=== PATIENT | female | born 1990 | race Caucasian/White ===

== ENCOUNTER 2022-11-13 12:30 | Emergency (ER) | payer MEDICAID ==
[~2022-11-13] VITALS: Ht 154.9 cm; Wt 73.1 kg
[2022-11-13 13:40] LABS: Urine Bacteria FEW /hpf (None Seen); Urine Blood 1+ /uL (Negative); Urine Mucus FEW (None Seen); Urine Specific Gravity 1.013 (1.001-1.035); Urine WBC 1 /hpf (0 - 5)
[2022-11-13 13:53] LABS: Basophils # (auto) 0 10 ^3/uL (0-0.2); Basophils % (auto) 0.4 % (0.0-2.0); Eosinophils # (auto) 0.1 10 ^3/uL (0-0.8); Eosinophils % (auto) 0.9 % (0.0-7.0); Hematocrit 38.5 % (36.0-46.0); Hemoglobin 13.5 g/dL (12.2-16.2); Lymphocytes # (auto) 1.5 10 ^3/uL (0.4-5.4); Mean Corpuscular Hemoglobin 30.4 pg (28.0-32.0); Mean Corpuscular Hgb Conc. 35.1 g/dL (32.0-36.0); Mean Corpuscular Volume 86.7 fL (80.0-100.0); Monocytes # (auto) 0.3 10 ^3/uL (0-1.3); Monocytes % (auto) 4.8 % (0.0-12.0); Neutrophils # (auto) 4.5 10 ^3/uL (1.6-8.6); Neutrophils % (auto) 69.9 % (37.0-80.0); Nucleated Red Blood Cells % 0.1 %; Red Blood Cells 4.45 10^6/uL (4.0-5.20); Red Cell Distribution Width 12.6 % (11.8-14.3); White Blood Cell 6.4 10^3/uL (4.4-10.8)
[2022-11-13 14:07] LABS: BUN/Creatinine Ratio 15.3; Calcium 8.9 mg/dL (8.5-10.1); Potassium 3.7 mmol/L (3.5-5.1)
[2022-11-13 14:10] LABS: Bilirubin, Total 0.5 mg/dL (0.2-1.0); Total Protein 7.3 g/dL (6.4-8.2)
[2022-11-13] MEDS ORDERED: KETOROLAC TROMETH 60MG/2ML VIAL IM ONE (18:15)
[2022-11-13] MEDS ORDERED: cefTRIAXone W LIDOCAINE 1 GM IM IM ONE (18:15)
[2022-11-13] MEDS ORDERED: MORPHINE SULFATE 4 MG/ML SYR/VIAL IV ONE (18:15)
[2022-11-13] MEDS ORDERED: HYDR-4798 PO (18:46)
[2022-11-13] MEDS ORDERED: METR500T PO (18:46)
[2022-11-13] MEDS ORDERED: LEVO500T31 PO (18:46)
[2022-11-13] MEDS ORDERED: MORPHINE SULFATE 4 MG/ML SYR/VIAL IM ONE (19:30)
[2022-11-13 19:41] VITALS: BP 117/76
== END 2022-11-13 20:16 | disposition home or self-care (01) ==
LOC: ER 12:30
DX: R10.2 Pelvic and perineal pain (principal)
CPT/HCPCS: 36415; 76856; 80053; 81001; 81025; 85025; 96372; 99285; J0696; J1885; J2270

== ENCOUNTER 2022-12-12 08:11 | Emergency (ER) | payer MEDICAID ==
[~2022-12-12] VITALS: Ht 175.3 cm; Wt 73.8 kg
[~2022-12-12 08:11] MED LIST: HYDR-4798 PO; LEVO500T31 PO; METR500T PO
[2022-12-12] MEDS ORDERED: KETOROLAC TROMETH 60MG/2ML VIAL IM ONE (09:45)
[2022-12-12 10:13] VITALS: BP 117/78
[2022-12-12] MEDS ORDERED: IBUP800T27 PO (10:16)
[2022-12-12] MEDS ORDERED: METH750T22 PO (10:16)
== END 2022-12-12 10:24 | disposition home or self-care (01) ==
LOC: ER 08:11
DX: S23.41XA Sprain of ribs, initial encounter (principal); M94.0 Chondrocostal junction syndrome [Tietze]; X58.XXXA Exposure to other specified factors, initial encounter; Y93.89 Activity, other specified; Y92.89 Other specified places as the place of occurrence of the external cause; Y99.8 Other external cause status
CPT/HCPCS: 71101; 96372; 99283; J1885